=== PATIENT | male | born 1935 | race Caucasian/White ===

== ENCOUNTER → 2016-09-01 | Outpatient (CLI) | payer OTHER ==
[~2016-09-01] MED LIST: ASPIRIN EC81 M1 PO; CARVEDILOL25 MG PO; HYDRALAZINE HCL25 MG PO; LASIX PO; LIPITOR40 MG PO; MINOXIDIL10 MG PO; NORVASC10 MG PO; ULORIC40 MG PO
--- NOTE | ~2016-09-01 | XA24 ---
[facility] A Service of [facility] RADIOLOGY TEXT RESULTS PATIENT: JEANA ROSE LOCATION: CIVR : 37 UNIT #: [id number] AGE: [address]: Miguel A Ambriz MD SEX: M ORDER DR: [id number] [facility] [address] [place], [place] [address] [id number] O MR#: [id number] Acc #: [id number] NAME: JEANA ROSE : 1935 SEX: M STUDY DATE/TIME: 09/01/2016 8:37 UNIT: CIVR ROOM: STUDY DESCRIPTION: XA Angio Renal Bilateral W WO Attending Physician: Jaja Ambriz M.D. Ordering Physician: Hill Sharma M.D. Primary Care Physician: Generic Doctor Not In System MEDICAL IMAGING REPORT This report is preliminary unless electronic signature is present EXAM CO2 abdominal aortogram and renal arteriogram dated 09/01/16. HISTORY Hypertension with chronic kidney disease. Patient was referred for renal angiography due to hypertension. FINDINGS Procedure, attendant risks and options were discussed with the patient. He understands and wished to proceed. The patient was placed in the supine position in the angio suite. Conscious sedation was administered using Versed and Fentanyl. The right groin was prepped and draped with Chlorhexidine solution. Maximal sterile barrier technique including hats, gowns, gloves, masks and shoe covers and sheaths were all utilized. After a time-out, right groin was palpated and skin anesthetized with 1% Xylocaine. A micropuncture was performed of the right common femoral artery and subsequent 5-Malawian sheath placed. A flush catheter was placed in the abdominal aorta. Flush aortogram was performed showing perfusion of the renal artery on the right. The left is not seen. There is normal perfusion of the celiac and SMA. A Cobra II catheter was then inserted and selectively placed in the right renal artery and CO2 angiography performed through the catheter. The examination shows no evidence of significant renal artery stenosis on the right. The left renal artery is not clearly identified. The catheter was then placed into the left renal arteries. CO2 angiography attempted at the orifice. No contrast was seen distally. A small aliquot of about 3 mL of contrast was then injected and it appears occluded just beyond its origin. The catheter was removed. Angio-Seal closure was performed in the groin. Procedure was very well tolerated. CONCLUSION [facility] A Service of [facility] RADIOLOGY TEXT RESULTS PATIENT: JEANA ROSE LOCATION: [facility] : 37 UNIT #: [id number] AGE: [address]: Miguel A Ambriz MD SEX: M ORDER DR: 1. 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 2. No significant narrowing of the right renal artery. 3. Total fluoroscopy time was 7.5 minutes. A total of 7 DSA runs was performed with 25 images. Dictated by... Rj Browne M.D. THIS IS AN ELECTRONICALLY VERIFIED REPORT Rj Browne M.D. at 09/04/2016 5:11 PM ARYA/reilly TD: 09/01/2016 12:54 JOB #: [id number] MEDICAL IMAGING REPORT Page 1 of 1 COPY
[2016-09-01 08:33] LABS: HEMATOCRIT 37.4 % (38.0-50.0); HEMOGLOBIN 12.2 gm/dL (13.0-16.0); MEAN CELL VOLUME 86.7 FL (83-96); MEAN CORPUSCULAR HEMOGLOBIN 28.3 PG (28-34); MEAN CORPUSCULAR HGB CONC 32.6 g/dL (30-36); MEAN PLATELET VOLUME 8.2 FL (6.5-11.5); RED BLOOD COUNT 4.31 X10e (3.90-5.60); RED CELL DISTRIBUTION WIDTH 14.7 % (11.0-15.5); WHITE BLOOD COUNT 6.9 X10e3 (4.0-10.5)
[2016-09-01 08:49] LABS: INR 1.1; PARTIAL THROMBOPLASTIN TIME 26.1 SECONDS (23.5-31.3); PROTHROMBIN TIME (PATIENT) 11.6 SECONDS (10.0-11.7)
== END | disposition home or self-care (01) ==
LOC: CIVR 08:12
PROVIDERS: Internal Medicine Nephrology
DX: I70.1 Atherosclerosis of renal artery (principal); I12.9 Hypertensive chronic kidney disease with stage 1 through stage 4 chronic kidney disease, or unspecified chronic kidney disease; N18.3 Chronic kidney disease, stage 3 (moderate); I25.10 Atherosclerotic heart disease of native coronary artery without angina pectoris; M10.9 Gout, unspecified; G47.33 Obstructive sleep apnea (adult) (pediatric)
CPT/HCPCS: 36415; 75625; 85027; 85610; 85730; C1725; C1760; C1894; J2250; J3010; Q9967